=== PATIENT | female | born 1950 | race Caucasian/White ===

== ENCOUNTER 2021-07-20 09:37 | Outpatient (CLI) | payer MEDICARE, SELFPAY ==
--- NOTE | 2021-07-20 11:30 | NEURO_ITS ---
Impression: # Complains of lower extremity numbness. History of chemotherapy. 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 # Needle/EMG exam revealed neurogenic changes in muscles but no myotonia or active fibrillations; again changes are more pronounced in right lower extremity. # Clinical correlation recommended. Nerve Conduction Studies Anti Sensory Summary Table Stim Site NR Peak (ms) P-T Amp (?V) Site1 Site2 Delta-P (ms) Dist (cm) Edmund (m/s) Left Sup Fibular Anti Sensory (Ant Lat Mall) 14 cm 4.6 13.1 14 cm Ant Lat Mall 4.6 16.0 35 Right Sup Fibular Anti Sensory (Ant Lat Mall) 14 cm 3.9 16.1 14 cm Ant Lat Mall 3.9 16.0 41 Left Sural Anti Sensory (Lat Mall) Calf 4.5 11.1 Calf Lat Mall 4.5 16.0 36 Right Sural Anti Sensory (Lat Mall) Calf 4.7 7.4 Calf Lat Mall 4.7 16.0 34 Motor Summary Table Stim Site NR Onset (ms) O-P Amp (mV) Site1 Site2 Delta-0 (ms) Dist (cm) Edmund (m/s) Left Peroneal Motor (Vastus Med) Ankle 4.5 0.9 Popit Ankle 9.6 36.0 38 Popit 14.1 1.4 Right Peroneal Motor (Vastus Med) NO RESPONSE Ankle NR Popit NR Left Tibial Motor (Abd Pham Brev) Ankle 4.5 0.7 Knee Ankle 9.7 39.0 40 Knee 14.2 0.4 Right Tibial Motor (Abd Pham Brev) Ankle 4.6 0.3 Knee Ankle 11.3 42.0 37 Knee 15.9 0.2 F Wave Studies NR F-Lat (ms) L-R F-Lat (ms) Left Peroneal (Mrkrs) (EDB) 58.44 Right Peroneal (Mrkrs) (EDB) NO RESPONSE NR Left Tibial (Mrkrs) (Abd Hallucis) 60.23 0.00 Right Tibial (Mrkrs) (Abd Hallucis) 60.23 0.00 EMG Side Muscle Nerve Root Ins Act Fibs Amp Dur Recrt Comment Right AntTibialis Dp Br Fibular L4-5 Nml Nml Incr >12ms Reduced Right Gastroc Tibial S1-2 Nml Nml Incr >12ms Reduced Right Fibularis Long Sup Br Fibular L5-S1 Nml Nml Incr >12ms Reduced Right Flex Dig Long Tibial L5-S2 Nml Nml Nml Nml Nml Right Ext Dig Brev Dp Br Fibular L5, S1 Nml Nml Incr >12ms Reduced Left AntTibialis Dp Br Fibular L4-5 Nml Nml Nml Nml Nml Left Gastroc Tibial S1-2 Nml Nml Nml Nml Nml Left Fibularis Long Sup Br Fibular L5-S1 Nml Nml Nml Nml Nml Left Flex Dig Long Tibial L5-S2 Nml Nml Nml Nml Nml Left Ext Dig Brev Dp Br Fibular L5, S1 Nml Nml Nml Nml Nml Right QuadratusFem QuadFemoris L4-5, S1 Nml Nml Incr >12ms Reduced Left QuadratusFem QuadFemoris L4-5, S1 Nml Nml Nml Nml Nml MTDD
== END 2021-07-20 09:38 | disposition home or self-care (01) ==
LOC: ANHNEURO 09:39
PROVIDERS: PCP Family Medicine; Visit Provider Family Medicine
DX: G62.9 Polyneuropathy, unspecified (principal); G25.81 Restless legs syndrome
CPT/HCPCS: 95886; 95910

== ENCOUNTER 2022-01-24 08:18 | Outpatient (CLI) | payer MEDICARE, SELFPAY ==
--- NOTE | ~2022-01-24 | US_ITS ---
EXAMINATION:US venous doppler LE LT INDICATION:Left leg swelling TECHNIQUE: Multiple grayscale, color flow and Doppler images of the left lower extremity deep venous systems were obtained and reviewed. COMPARISON:No prior studies for comparison. FINDINGS: The common femoral, superficial femoral and popliteal veins demonstrate normal respiratory variation, augmentation and compressibility. Color flow is also seen within the posterior tibial, pe roneal, greater saphenous and profunda veins. IMPRESSION: 1: No lower extremity deep venous thrombosis. Reviewed, dictated and finalized at location A.
== END 2022-01-24 08:19 | disposition home or self-care (01) ==
PROVIDERS: PCP Family Medicine; Visit Provider Orthopaedic Surgery
DX: M79.89 Other specified soft tissue disorders (principal)
CPT/HCPCS: 93971

== ENCOUNTER 2024-09-24 10:10 | Outpatient (CLI) | payer MEDICARE, SELFPAY ==
--- NOTE | ~2024-09-24 | CT_ITS ---
EXAMINATION: CTA brain carotid DATE: 09/24/2024 12:32 INDICATION: Dizziness. Vertigo. Right carotid bruit. TECHNIQUE: Computed tomographic angiography (CTA) of the head was performed without and with 100 mL O mnipaque-350 intravenous contrast. CTA of the neck was performed with intravenous contrast. Automated exposure control and iterative reconstruction technique were employed. The dose-length product was 1 558.08 mGy-cm. Maximum intensity projection and volume rendered 3D-reconstructions were created by bossman eric technologist on a separate workstation. COMPARISON: None. FINDINGS: HEAD CTA: There is no intracranial hemorrhage, acute infarction, or abnormal intracranial mass lesion . The ventricles are normal in size. There is a mucous retention cyst in right maxillary sinus. The o rbits are normal. The mastoid air cells are normal. The vertebral arteries are codominant. There is n o significant stenosis of basilar artery or the posterior cerebral arteries. There is no significant stenosis of the intracranial internal carotid arteries or anterior or middle cerebral arteries. Anter ior communicating artery is normal. The posterior communicating arteries are normal. There is no aneu rysm. NECK CTA: There are nodules in the thyroid measuring up to 6 mm, likely not clinically significant. T here are no pathologically enlarged lymph nodes. There is no significant stenosis of the vertebral ar teries. There is plaque in the proximal internal carotid arteries. There is 0% stenosis of the proxim al right internal carotid artery relative to normal distal artery lumen diameter (NASCET criteria). T here is 0% stenosis of the proximal left internal carotid artery relative to normal distal artery lum en diameter. There is severe cervical and thoracic spondylosis. IMPRESSION: 1. Normal brain. No aneurysm or significant intracranial canal stenosis. 2. 0% stenosis of the proximal internal carotid arteries relative to normal distal artery lumen diame ters (NASCET criteria). Reviewed, dictated and finalized at location A. TLE CAR OPERATOR IMPRESSION: 1. Normal brain. No aneurysm or significant intracranial canal stenosis. 2. 0% stenosis of the proximal internal carotid arteries relative to normal dis layla artery lumen diameters (NASCET criteria).
[2024-09-24 10:57] LABS: Estimated Glomerular Filt Rate > 60
== END 2024-09-24 10:11 | disposition home or self-care (01) ==
LOC: MICIMG 10:11
PROVIDERS: PCP Family Medicine; Visit Provider Family Medicine
DX: I10 Essential (primary) hypertension (principal); R42 Dizziness and giddiness; R09.89 Other specified symptoms and signs involving the circulatory and respiratory systems; H69.90 Unspecified Eustachian tube disorder, unspecified ear
CPT/HCPCS: 70496; 70498; Q9967